=== PATIENT | female | born 1995 | race Caucasian/White ===

== ENCOUNTER 2016-12-20 19:30 | Emergency (ER) | payer OTHER, MEDICAID ==
[2016-12-20 19:45] VITALS: BP 136/78
[2016-12-20] MEDS ORDERED: Sodium Chloride 0.9% 10 ML Syringe FLUSH PRN (20:08)
[2016-12-20] MEDS ORDERED: Alum Hydrox/Mag Hydrox/Simeth 30 ML, Lidocaine 2% 15 ML PO ONE ×2 (20:09)
--- NOTE | 2016-12-20 20:17 | EDM.PDOC ---
ED HPI GI/ABDOMINAL - General Chief Complaint: Abdominal Pain Stated Complaint: ABDOMINAL PAIN Time Seen by Provider: 12/20/16 19:51 Source of Information: Reports: Patient History Limitations: Reports: No limitations - History of Present Illness INITIAL COMMENTS - FREE TEXT/NARRATIVE: Patient is a 21-year-old female who presents to the ED complaining of generalized stomach discomfort. States she's been experiencing intermittent abdominal cramping with varying degrees of severity. For the past few weeks patient states the symptoms have progressively gotten worse and more frequent. States symptoms have been going on since she was 17. Last year she had an appendectomy and cholycytectomy. This did not relieve any of the pain. States pain comes on at unpredictable times. Does not recall any known precipitating factors. Denies ever being diagnosed with irritable bowel syndrome. She's never had an EGD or colonoscopy. [facility] primary care provider is worried that she may have Crohn's. States last CT study of the abdomen was a approx. one year ago with appendectomy. States she has not eaten today. Has appointment with Dr. Gardner this coming Monday. Due to the pain patient stated she can not wait for this appointment. States she is utilizing TUMS intermittently with no improvement. She denies any fever, shortness breath, chest pain, acid reflux, dysuria, vaginal bleeding, or abnormal vaginal discharge. States she is breast-feeding her one half year-old. States last bowel movement was this morning described as hard and formed with no straining required. Denies any blood. States she does have intermittent diarrhea with hard stools. Past medical history positive for depression. Current medications include Zoloft, control, and Wellbutrin Surgical history: Cholecystectomy, appendectomy, Smokes few cigarettes daily, alcohol use once every month, no recreational drug use. Timing/Duration: Reports: Intermittent Location: generalized Quality: Reports: cramping Severity: moderate Improves with: Reports: other (Nothing) Worsens with: Reports: other (Nothing) Context: Reports: other (Unknown) Associated Symptoms (-Female): Reports: constipation, diarrhea, loss of appetite, nausea/vomiting (Intermittent nausea). Denies: chest pain, back pain , shoulder pain, bloody stools, fever/chills Treatments [employer]: Reports: Other (see below) (Tums) - Related Data Allergies/ADRs: Allergies Allergy/AdvReac Type Severity Reaction Status Date / Time amoxicillin Allergy Severe Anaphylactic Verified 12/20/16 19:45 Shock venom-honey bee Allergy Anaphylactic Verified 12/20/16 19:45 [bee venom (honey bee)] Shock Home Meds: Home Meds Control. 1 tab PO DAILY 10/30/15 [History] Sertraline [Zoloft] 100 mg PO DAILY 10/30/15 [History] Ondansetron [Zofran ODT] 4 mg PO Q6H PRN #10 tab.dis 12/20/16 [Rx] buPROPion [Wellbutrin XL] 150 mg PO ONCALL PRN 12/20/16 [History] Past Medical History - Past Health History Medical/Surgical History: Denies Medical/Surgical History Psychiatric History: Reports: Depression - Past Surgical History GI Surgical History: Reports: Appendectomy, Cholecystectomy Social & Family History - Tobacco Use Smoking Status *Q: Current Every Day Smoker Years of Tobacco use: 5 Packs/Tins Daily: 0.1 Used Tobacco, but Quit: No Second Hand Smoke Exposure: Yes - Caffeine Use Caffeine Use: Reports: Coffee - Alcohol Use Days Per Week of Alcohol Use: 0 - Recreational Drug Use Recreational Drug Use: No ED ROS GENERAL - Review of Systems Review Of Systems: See Below Constitutional: Reports: decreased appetite. Denies: fever, chills Respiratory: Reports: No Symptoms Cardiovascular: Reports: No symptoms GI/Abdominal: Reports: Abdominal pain, Constipation, Diarrhea, Decreased appetite, Nausea. Denies: Black stool, Bloody stool, Difficulty swallowing, Distension, Flatus, Hematemesis, Melena, Vomiting : Reports: no symptoms Musculoskeletal: Reports: no symptoms ED EXAM, GI/ABD - Physical Exam Exam: See Below Exam Limited By: No limitations General Appearance: alert, WD/WN, no apparent distress, other (Sitting upright in the hospital bed smiling while conversation) Eyes: bilateral: normal appearance Ears: hearing grossly normal Nose: normal inspection Throat/Mouth: Normal inspection, Normal oropharynx, Normal voice, No airway compromise Neck: normal inspection, supple Respiratory/Chest: no respiratory distress, lungs clear, normal breath sounds, no accessory muscle use Cardiovascular: normal peripheral pulses, regular rate, rhythm, no murmur GI/Abdominal: normal bowel sounds, soft, no organomegaly, no distention, tenderness (Along the epigastric region with palpation. This is very minimal. Patient did not grimace or guarding with palpation.). No: McBurney's sign, Mcneal's sign Back Exam: normal inspection. No: CVA tenderness (L), CVA tenderness (R) Neurological: alert, oriented, normal cognition, no motor/sensory deficits Psychiatric: normal affect, normal mood Skin Exam: Warm, Dry, Intact, Normal color Course - Vital Signs Last Recorded V/S: Last Vital Signs Temp 97.1 F 12/20/16 19:40 Pulse 83 12/20/16 19:40 Resp 18 12/20/16 19:40 BP 136/78 12/20/16 19:40 Pulse Ox 99 12/20/16 19:40 - Orders/Labs/Meds Orders: Active Orders 24 hr Category Date Time Status Peripheral IV Care [RC] . DIRECTED Care 12/20/16 20:08 Active Abdomen 1V Flat [CR] Stat Exams 12/20/16 20:08 Taken Peripheral IV Insertion Adult [OM.PC] Stat Oth 12/20/16 20:08 Ordered Labs: Laboratory Tests 12/20/16 12/20/16 12/20/16 Range/Units 19:45 19:45 19:45 WBC 14.13 H (3.98-10.04) K/mm3 RBC 5.03 (3.98-5.22) M/mm3 Hgb 14.7 (11.2-15.7) gm/L Hct 43.2 (34.1-44.9) % MCV 85.9 (79.4-94.8) fl MCH 29.2 (25.6-32.2) pg MCHC 34.0 (32.2-35.5) g/dl RDW Std Deviation 38.9 (36.4-46.3) fL Plt Count 246 (182-369) K/mm3 MPV 9.9 (9.4-12.3) fl Neut % (Auto) 74.7 H (34.0-71.1) % Lymph % (Auto) 17.8 L (19.3-51.7) % [place] % (Auto) 5.2 (4.7-12.5) % Eos % (Auto) 1.9 (0.7-5.8) Baso % (Auto) 0.3 (0.1-1.2) % Neut # (Auto) 10.55 H (1.56-6.13) K/mm3 Lymph # (Auto) 2.51 (1.18-3.74) K/mm3 [place] # (Auto) 0.74 H (0.24-0.36) K/mm3 Eos # (Auto) 0.27 (0.04-0.36) K/mm3 Baso # (Auto) 0.04 (0.01-0.08) K/mm3 Sodium 141 (136-145) mEq/L Potassium 3.7 (3.5-5.1) mEq/L Chloride 105 (98-107) mEq/L Carbon Dioxide 25 (21-32) mEq/L Anion Gap 14.7 (5-15) BUN 11 (7-18) mg/dL Creatinine 0.9 (0.55-1.02) mg/dL Est Cr Clr Drug Dosing 96.15 mL/min Estimated GFR (MDRD) > 60 (>60) mL/min BUN/Creatinine Ratio 12.2 L (14-18) Glucose 96 (74-106) mg/dL Calcium 9.2 (8.5-10.1) mg/dL Total Bilirubin 0.5 (0.2-1.0) mg/dL AST 20 (15-37) U/L ALT 22 (14-59) U/L Alkaline Phosphatase 138 H (46-116) U/L C-Reactive Protein 0.6 (<1.0) mg/dL Total Protein 8.1 (6.4-8.2) g/dl Albumin 4.3 (3.4-5.0) g/dl Globulin 3.8 gm/dL Albumin/Globulin Ratio 1.1 (1-2) Lipase 119 (73-393) U/L HCG, Qual Negative (NEGATIVE) Urine Color (Yellow) Urine Appearance (Clear) Urine pH (5.0-8.0) Ur Specific [place] (1.005-1.030) Urine Protein (Negative) Urine Glucose (UA) (Negative) Urine Ketones (Negative) Urine Occult Blood (Negative) Urine Nitrite (Negative) Urine Bilirubin (Negative) Urine Urobilinogen (0.2-1.0) Ur Leukocyte Esterase (Negative) Urine RBC (0-5) /hpf Urine WBC (0-5) /hpf Ur Epithelial Cells (0-5) /hpf Urine Bacteria (FEW) /hpf Urine Mucus (FEW) /hpf Urine Opiates Screen (NEGATIVE) Ur Buprenorphine Scrn (NEGATIVE) Ur Oxycodone Screen (NEGATIVE) Urine Methadone Screen (NEGATIVE) Ur Propoxyphene Screen (NEGATIVE) Ur Barbiturates Screen (NEGATIVE) Ur Tricyclics Screen (NEGATIVE) Ur Phencyclidine Scrn (NEGATIVE) Ur Amphetamine Screen (NEGATIVE) U Methamphetamines Scrn (NEGATIVE) U Benzodiazepines Scrn (NEGATIVE) U Cocaine Metab Screen (NEGATIVE) U Marijuana (THC) Screen (NEGATIVE) 12/20/16 12/20/16 Range/Units 20:47 20:47 WBC (3.98-10.04) K/mm3 RBC (3.98-5.22) M/mm3 Hgb (11.2-15.7) gm/L Hct (34.1-44.9) % MCV (79.4-94.8) fl MCH (25.6-32.2) pg MCHC (32.2-35.5) g/dl RDW Std Deviation (36.4-46.3) fL Plt Count (182-369) K/mm3 MPV (9.4-12.3) fl Neut % (Auto) (34.0-71.1) % Lymph % (Auto) (19.3-51.7) % [place] % (Auto) (4.7-12.5) % Eos % (Auto) (0.7-5.8) Baso % (Auto) (0.1-1.2) % Neut # (Auto) (1.56-6.13) K/mm3 Lymph # (Auto) (1.18-3.74) K/mm3 [place] # (Auto) (0.24-0.36) K/mm3 Eos # (Auto) (0.04-0.36) K/mm3 Baso # (Auto) (0.01-0.08) K/mm3 Sodium (136-145) mEq/L Potassium (3.5-5.1) mEq/L Chloride (98-107) mEq/L Carbon Dioxide (21-32) mEq/L Anion Gap (5-15) BUN (7-18) mg/dL Creatinine (0.55-1.02) mg/dL Est Cr Clr Drug Dosing mL/min Estimated GFR (MDRD) (>60) mL/min BUN/Creatinine Ratio (14-18) Glucose (74-106) mg/dL Calcium (8.5-10.1) mg/dL Total Bilirubin (0.2-1.0) mg/dL AST (15-37) U/L ALT (14-59) U/L Alkaline Phosphatase (46-116) U/L C-Reactive Protein (<1.0) mg/dL Total Protein (6.4-8.2) g/dl Albumin (3.4-5.0) g/dl Globulin gm/dL Albumin/Globulin Ratio (1-2) Lipase (73-393) U/L HCG, Qual (NEGATIVE) Urine Color Yellow (Yellow) Urine Appearance Slt cloudy H (Clear) Urine pH 5.5 (5.0-8.0) Ur Specific [place] 1.025 (1.005-1.030) Urine Protein Negative (Negative) Urine Glucose (UA) Negative (Negative) Urine Ketones Negative (Negative) Urine Occult Blood Negative (Negative) Urine Nitrite Negative (Negative) Urine Bilirubin Negative (Negative) Urine Urobilinogen 0.2 (0.2-1.0) Ur Leukocyte Esterase Negative (Negative) Urine RBC 0-5 (0-5) /hpf Urine WBC 0-5 (0-5) /hpf Ur Epithelial Cells 0-5 (0-5) /hpf Urine Bacteria Many H (FEW) /hpf Urine Mucus Not seen (FEW) /hpf Urine Opiates Screen Negative (NEGATIVE) Ur Buprenorphine Scrn Negative (NEGATIVE) Ur Oxycodone Screen Negative (NEGATIVE) Urine Methadone Screen Negative (NEGATIVE) Ur Propoxyphene Screen Negative (NEGATIVE) Ur Barbiturates Screen Negative (NEGATIVE) Ur Tricyclics Screen Negative (NEGATIVE) Ur Phencyclidine Scrn Negative (NEGATIVE) Ur Amphetamine Screen Negative (NEGATIVE) U Methamphetamines Scrn Negative (NEGATIVE) U Benzodiazepines Scrn Negative (NEGATIVE) U Cocaine Metab Screen Negative (NEGATIVE) U Marijuana (THC) Screen Negative (NEGATIVE) Meds: Medications Discontinued Medications Generic Name Dose Route Start Last Admin Trade Name Freq PRN Reason Stop Dose Admin Al Hydroxide/Mg Hydroxide 30 0 ml 12/20/16 20:09 12/20/16 20:18 ml/ Lidocaine HCl 15 ml PO 04/25/17 20:10 45 ml ONETIME ONE Administration Sodium Chloride 10 ml 12/20/16 20:08 12/20/16 20:19 Saline Flush FLUSH 10 ml ASDIRECTED PRN Administration Keep Vein Open - Re-Assessments/Exams Free Text/Narrative Re-Assessment/Exam: 12/20/16 20:12 Ordered peripheral IV. GI cocktail by mouth. Initial labs and studies include CBC, chem 14, CRP, UA, hCG, lipase, one view of the abdomen. 12/20/16 21:01 labs reviewed: White blood cell count 14.3, hemoglobin is 14.7, neutrophil percentage 74.7, neutrophil #10.55, sodium is 141, potassium 3.7, creatinine 0.9, CRP 0.6, lipase 119, hCG negative. Awaiting UA results. 12/20/16 21:36 Shared results of labs with patient. We have opted not to pursue CT of the abdomen and pelvis. This has been present for almost one year with unknown etiology. Patient does have a history depression and is on Zoloft and Wellbutrin. Both these medications adverse side effects list abdominal discomfort. I suspect she may have irritable bowel syndrome. She states she's been more stressed out lately. She has a 1-1/2-year-old child she's taken care of and they are financially strapped. She requires a EGD and colonoscopy to rule out any other potential etiologies. Patient agrees with this and will be discharged home with instructions. Departure - Departure Time of Disposition: 21:38 Disposition: Home, Self-Care 01 Condition: good Clinical Impression: Abdominal pain Qualifiers: Abdominal location: epigastric Qualified Code(s): R10.13 - Epigastric pain Prescriptions: Ondansetron [Zofran ODT] 4 mg PO Q6H PRN #10 tab.dis PRN Reason: Nausea Instructions: Abdominal Pain, Adult, [id number], Nausea and Vomiting, Adult, [id number] Referrals: Curly Aguirre MD [Primary Care Provider] - Forms: ED Department Discharge Additional Instructions: As discussed etiology of abdominal discomfort is unknown. Suggest on her PCP to arrange EGD and also colonoscopy. Take Tylenol as needed for discomfort. Will have these are taking Prilosec 20 mg every day. For nausea take 4 mg ODT every 6 hours as needed. Keep appointment with PCP this Monday. Return to the ED for any new or worsening symptoms as needed. - My Orders Last 24 Hours: My Active Orders 12/20/16 20:08 Peripheral IV Care [RC] . DIRECTED Abdomen 1V Flat [CR] Stat Peripheral IV Insertion Adult [OM.PC] Stat - Assessment/Plan Last 24 Hours: My Active Orders 12/20/16 20:08 Peripheral IV Care [RC] . DIRECTED Abdomen 1V Flat [CR] Stat Peripheral IV Insertion Adult [OM.PC] Stat
--- NOTE | 2016-12-21 06:45 | CR ---
Abdomen: Supine view of the abdomen was obtained. Comparison: Previous abdominal x-ray of 09/18/09. Bowel gas pattern appears normal. Surgical clips are seen from prior cholecystectomy. No abnormal calcifications or discrete soft tissue abnormality is seen. Bony structures are unremarkable. Impression: 1. No abnormality identified on supine abdominal x-ray. Diagnostic code #1
== END 2016-12-20 21:56 | disposition home or self-care (01) ==
LOC: JD.ED 19:30
DX: R10.13 Epigastric pain (principal); Z88.1 Allergy status to other antibiotic agents; Z91.030 Bee allergy status; F32.9 Major depressive disorder, single episode, unspecified; F17.210 Nicotine dependence, cigarettes, uncomplicated; Z90.49 Acquired absence of other specified parts of digestive tract; Z79.899 Other long term (current) drug therapy
CPT/HCPCS: 36415; 74000; 80053; 80306; 81001; 83690; 84703; 85025; 86140; 99284; A9270; J7050; 99282

== ENCOUNTER 2018-11-27 19:13 | Emergency (ER) | payer OTHER, MEDICAID ==
[2018-11-27 19:23] VITALS: BP 135/83
--- NOTE | 2018-11-27 20:12 | EDM.PDOC ---
<Caroline Casas - Last Filed: 11/27/18 20:51> ED HPI GENERAL MEDICAL PROBLEM - General Chief Complaint: General Stated Complaint: HIGH BLOOD PRESSURE Time Seen by Provider: 11/27/18 19:24 Source of Information: Reports: Patient History Limitations: Reports: No Limitations - History of Present Illness INITIAL COMMENTS - FREE TEXT/NARRATIVE: 23 y/o female presents to ER with cc feeling light headed, dizzy and difficulty concentrating for the past 3 days. She also states she is here because her B/P is to high. She was seen at clinic and was told to come to ER for further evaluation. Her B/P is 138/78. She states she was told " it is to high for someone her age." She denies fever, chills, headache, SOB or chest pain. Onset Date: 11/25/18 Onset Time: 12:00 Duration: Intermittent Location: Reports: Head Severity: Mild Improves with: Reports: None Worsens with: Reports: None Associated Symptoms: Reports: Other (feels light headed, dizzy and difficulty concentrating for the past 3 days. ). Denies: Chest Pain, Diaphoresis, Nausea/ Vomiting - Related Data Allergies Allergy/AdvReac Type Severity Reaction Status Date / Time amoxicillin Allergy Severe Anaphylactic Verified 11/27/18 19:25 Shock venom-honey bee Allergy Anaphylactic Verified 11/27/18 19:25 [bee venom (honey bee)] Shock Home Meds: Home Meds Control. 1 tab PO DAILY 10/30/15 [History] Sertraline [Zoloft] 100 mg PO DAILY 10/30/15 [History] Ondansetron [Zofran ODT] 4 mg PO Q6H PRN #10 tab.dis 12/20/16 [Rx] buPROPion [Wellbutrin XL] 150 mg PO ONCALL PRN 12/20/16 [History] Past Medical History - Past Health History Medical/Surgical History: Denies Medical/Surgical History Cardiovascular History: Reports: Heart Murmur, Other (See Below) 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 Psychiatric History: Reports: Depression - Past Surgical History GI Surgical History: Reports: Appendectomy, Cholecystectomy Social & Family History - Tobacco Use Smoking Status *Q: Current Every Day Smoker Years of Tobacco use: 7 Packs/Tins Daily: 0.5 - Caffeine Use Caffeine Use: Reports: Coffee, Soda - Recreational Drug Use Recreational Drug Use: No ED ROS GENERAL - Review of Systems Review Of Systems: See Below Constitutional: Denies: Fever, Chills HEENT: Reports: No Symptoms Respiratory: Denies: Shortness of Breath Cardiovascular: Denies: Chest Pain Endocrine: Reports: No Symptoms GI/Abdominal: Reports: No Symptoms Musculoskeletal: Reports: No Symptoms Skin: Reports: Dryness Neurological: Reports: Dizziness, Weakness. Denies: Change in Speech, Gait Disturbance Psychiatric: Reports: Anxiety Hematologic/Lymphatic: Reports: No Symptoms Immunologic: Reports: No Symptoms ED EXAM, GENERAL - Physical Exam Exam: See Below Exam Limited By: No Limitations General Appearance: Alert, WD/WN, No Apparent Distress Eye Exam: Bilateral Eye: EOMI, PERRL Ears: Normal External Exam, Normal Canal, Hearing Grossly Normal, Normal TMs Nose: Normal Inspection, Normal Mucosa, No Blood Throat/Mouth: Normal Inspection, Normal Lips, Normal Teeth, Normal Gums, Normal Oropharynx, Normal Voice, No Airway Compromise Head: Atraumatic, Normocephalic Neck: Normal Inspection, Supple, Non-Tender, Full Range of Motion Respiratory/Chest: No Respiratory Distress, Lungs Clear, Normal Breath Sounds, No Accessory Muscle Use, Chest Non-Tender Cardiovascular: Normal Peripheral Pulses, Regular Rate, Rhythm, No Edema, No Gallop, No JVD, No Murmur, No Rub Back Exam: Normal Inspection, Full Range of Motion Extremities: Normal Inspection, Normal Range of Motion, Non-Tender, No Pedal Edema, Normal Capillary Refill Neurological: Alert, Oriented, CN II-XII Intact, Normal Cognition, Normal Reflexes, No Motor/Sensory Deficits Psychiatric: Normal Affect, Normal Mood Skin Exam: Warm, Dry, Intact, Normal Color, No Rash Lymphatic: No Adenopathy EKG INTERPRETATION EKG Date: 11/27/18 Time: 19:36 Rhythm: NSR Rate (Beats/Min): 86 Course - Vital Signs Last Recorded V/S: Last Vital Signs Temp 97.8 F 11/27/18 19:20 Pulse 88 11/27/18 19:20 Resp 16 11/27/18 19:20 BP 135/83 11/27/18 19:20 Pulse Ox 99 11/27/18 19:20 Orthostatic Blood Pressure [ 113/76 Sitting] Orthostatic Blood Pressure [ 106/61 Supine] - Orders/Labs/Meds Orders: Active Orders 24 hr Category Date Time Status EKG Documentation Completion [RC] STAT Care 11/27/18 19:29 Active Orthostatic Vital Signs [RC] ASDIRECTED Care 11/27/18 19:30 Active Labs: Laboratory Tests 11/27/18 11/27/18 11/27/18 Range/Units 19:49 20:07 20:07 WBC 13.49 H (3.98-10.04) K/mm3 RBC 4.85 (3.98-5.22) M/mm3 Hgb 14.0 (11.2-15.7) gm/L Hct 41.7 (34.1-44.9) % MCV 86.0 (79.4-94.8) fl MCH 28.9 (25.6-32.2) pg MCHC 33.6 (32.2-35.5) g/dl RDW Std Deviation 39.4 (36.4-46.3) fL Plt Count 248 (182-369) K/mm3 MPV 9.5 (9.4-12.3) fl Neut % (Auto) 68.7 (34.0-71.1) % Lymph % (Auto) 22.7 (19.3-51.7) % [place] % (Auto) 5.4 (4.7-12.5) % Eos % (Auto) 2.9 (0.7-5.8) Baso % (Auto) 0.2 (0.1-1.2) % Neut # (Auto) 9.26 H (1.56-6.13) K/mm3 Lymph # (Auto) 3.06 (1.18-3.74) K/mm3 [place] # (Auto) 0.73 H (0.24-0.36) K/mm3 Eos # (Auto) 0.39 H (0.04-0.36) K/mm3 Baso # (Auto) 0.03 (0.01-0.08) K/mm3 Sodium 140 (136-145) mEq/L Potassium 3.6 (3.5-5.1) mEq/L Chloride 104 (98-107) mEq/L Carbon Dioxide 26 (21-32) mEq/L Anion Gap 13.6 (5-15) BUN 10 (7-18) mg/dL Creatinine 0.9 (0.55-1.02) mg/dL Est Cr Clr Drug Dosing 94.54 mL/min Estimated GFR (MDRD) > 60 (>60) mL/min BUN/Creatinine Ratio 11.1 L (14-18) Glucose 91 (74-106) mg/dL Calcium 9.5 (8.5-10.1) mg/dL Total Bilirubin 0.2 (0.2-1.0) mg/dL AST 17 (15-37) U/L ALT 14 (14-59) U/L Alkaline Phosphatase 106 (46-116) U/L Total Protein 7.6 (6.4-8.2) g/dl Albumin 3.9 (3.4-5.0) g/dl Globulin 3.7 gm/dL Albumin/Globulin Ratio 1.1 (1-2) Urine Color Yellow (Yellow) Urine Appearance Clear (Clear) Urine pH 6.0 (5.0-8.0) Ur Specific [place] 1.025 (1.005-1.030) Urine Protein Negative (Negative) Urine Glucose (UA) Negative (Negative) Urine Ketones Negative (Negative) Urine Occult Blood Negative (Negative) Urine Nitrite Negative (Negative) Urine Bilirubin Negative (Negative) Urine Urobilinogen 0.2 (0.2-1.0) Ur Leukocyte Esterase Negative (Negative) - Re-Assessments/Exams Free Text/Narrative Re-Assessment/Exam: 11/27/18 20:46 23 y/o female presented to ER with cc dizziness, unable to concentrate and light headed. Her WBC 13.49 I think this is stress induced. Her H & H 14.0 41.7 Na+ 140 K= 3.6 Bun 10 creatine 0.9 Urinalysis was unremarkable. Her EKG revealed NSR. There was no change in her orthostatic B/P. I think her symptoms are due to anxiety and stress. I will discharge home with instructions to follow up with Dr. Gardner. I instructed her to return to the ER for any new or acute worsening symptoms. Patient verbalized understanding and is comfortable with plan for discharge. She is stable at time of discharge. Departure - Departure Time of Disposition: 20:49 Disposition: Home, Self-Care 01 Condition: Good Clinical Impression: Dizziness - Discharge Information *PRESCRIPTION DRUG MONITORING PROGRAM REVIEWED*: Not Applicable *COPY OF PRESCRIPTION DRUG MONITORING REPORT IN PATIENT GEMINI: Not Applicable Instructions: Dizziness, [id number], Dizziness Referrals: Curly Aguirre MD [Primary Care Provider] - Forms: ED Department Discharge Additional Instructions: You have been diagnosis with dizziness. I recommend you go from sitting to standing very slowly. Your labs studies were unremarkable. Follow up with Dr. Gardner. Return to the ER for any new or acute worsening symptoms. <Charly Marvin - Last Filed: 11/27/18 21:57> Course - Re-Assessments/Exams Free Text/Narrative Re-Assessment/Exam: 11/27/18 21:57 I examined the patient myself and I agree with Caroline's assessment and plan.
== END 2018-11-27 21:03 | disposition home or self-care (01) ==
LOC: JD.ED 19:13
DX: R42 Dizziness and giddiness (principal); F17.210 Nicotine dependence, cigarettes, uncomplicated; Z88.8 Allergy status to other drugs, medicaments and biological substances; Z88.1 Allergy status to other antibiotic agents; Z91.030 Bee allergy status; Z79.3 Long term (current) use of hormonal contraceptives; Z79.899 Other long term (current) drug therapy
CPT/HCPCS: 36415; 80053; 81003; 85025; 93005; 93010; 99284; 99284-25

== ENCOUNTER 2019-09-15 16:13 | Emergency (ER) | payer OTHER, MEDICAID ==
[2019-09-15] MEDS ORDERED: Alum Hydrox/Mag Hydrox/Simeth 30 ML, Lidocaine 2% 15 ML PO ONE ×2 (16:26)
--- NOTE | 2019-09-15 16:29 | EDM.PDOC ---
ED HPI GENERAL MEDICAL PROBLEM - General Chief Complaint: Chest Pain Stated Complaint: CRAMPING/BURNING IN CHEST/BACK Time Seen by Provider: 09/15/19 16:22 Source of Information: Reports: Patient History Limitations: Reports: No Limitations - History of Present Illness INITIAL COMMENTS - FREE TEXT/NARRATIVE: Patient's unfortunate obese 23-year-old female who presents emergency Department today with complaint of epigastric abdominal pain. Patient reports she was in her normal state of health prior to arrival when she had a sharp stabbing burning type pain started in her epigastrium radiating to her left chest and left arm. Patient reports pain also radiates to her back. Patient reports she has had pain similar to this in the past was diagnosed with a "ulcer ". Patient was scheduled follow up outpatient in September of this year. No nausea, no vomiting, no hematemesis, no hematochezia, no melena, no vaginal discharge, no dysuria, no frequency, no urgency, patient does report she had shortness of breath when the pain came on however that is since resolved Chest Pain Score (Numeric/FACES): 5 Upper Back Pain Score (Numeric/FACES): 4 - Related Data Allergies Allergy/AdvReac Type Severity Reaction Status Date / Time amoxicillin Allergy Severe Anaphylactic Verified 11/27/18 19:25 Shock venom-honey bee Allergy Anaphylactic Verified 11/27/18 19:25 [bee venom (honey bee)] Shock Home Meds: Home Meds Control. 1 tab PO DAILY 10/30/15 [History] Sertraline [Zoloft] 100 mg PO DAILY 10/30/15 [History] Amitriptyline [Elavil] 5 mg PO BEDTIME 09/15/19 [History] Past Medical History - Past Health History Medical/Surgical History: Denies Medical/Surgical History Cardiovascular History: Reports: Heart Murmur, Other (See Below) 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 Psychiatric History: Reports: Depression - Past Surgical History GI Surgical History: Reports: Appendectomy, Cholecystectomy Social & Family History - Caffeine Use Caffeine Use: Reports: Coffee, Soda ED ROS GENERAL - Review of Systems Review Of Systems: See Below Constitutional: Denies: Fever, Chills Respiratory: Reports: Shortness of Breath Cardiovascular: Reports: Chest Pain GI/Abdominal: Reports: Abdominal Pain. Denies: Nausea, Vomiting ED EXAM, GI/ABD - Physical Exam Exam: See Below Exam Limited By: No Limitations General Appearance: Alert, WD/WN, Mild Distress, Obese Throat/Mouth: Normal Inspection, Normal Lips, Normal Teeth, Normal Gums, Normal Oropharynx, Normal Voice, No Airway Compromise Head: Atraumatic, Normocephalic Neck: Normal Inspection, Supple, Non-Tender, Full Range of Motion Respiratory/Chest: No Respiratory Distress, Lungs Clear, Normal Breath Sounds, No Accessory Muscle Use, Chest Non-Tender Cardiovascular: Normal Peripheral Pulses, Regular Rate, Rhythm, No Edema, No Gallop, No JVD, No Murmur, No Rub GI/Abdominal Exam: Normal Bowel Sounds, Soft, Tender (Epigastric) Back Exam: Normal Inspection, Full Range of Motion, NT Extremities: Normal Inspection, Normal Range of Motion, Non-Tender, Normal Capillary Refill, No Pedal Edema Neurological: Alert Skin Exam: Warm, Dry Course - Vital Signs Last Recorded V/S: Last Vital Signs Temp 97.6 F 09/15/19 16:30 Pulse 86 09/15/19 16:30 Resp 20 09/15/19 16:30 BP 132/79 09/15/19 16:30 Pulse Ox 100 09/15/19 16:30 - Orders/Labs/Meds Meds: Medications Discontinued Medications Generic Name Dose Route Start Last Admin Trade Name Latosha PRN Reason Stop Dose Admin Al Hydroxide/Mg Hydroxide 30 0 ml 09/15/19 16:26 09/15/19 16:32 ml/ Lidocaine HCl 15 ml PO 09/15/19 16:27 45 ml ONETIME ONE Administration - Re-Assessments/Exams Free Text/Narrative Re-Assessment/Exam: 09/15/19 17:11 Please resolution of pain with GI cocktail will discharge to home for outpatient follow up outpatient with PCP Departure - Departure Time of Disposition: 17:12 Disposition: Home, Self-Care 01 Condition: Good Clinical Impression: GERD (gastroesophageal reflux disease) Qualifiers: Esophagitis presence: with esophagitis Qualified Code(s): K21.0 - Gastro- esophageal reflux disease with esophagitis - Discharge Information Instructions: Gastroesophageal Reflux Disease, Adult Referrals: Curly Aguirre MD [Primary Care Provider] - Forms: ED Department Discharge Additional Instructions: Home, rest, Prilosec OTC daily for one month, Tums as needed for pain, return as needed for worsening condition Sepsis Event Note - Focused Exam Vital Signs: Vital Signs Temp Pulse Resp BP Pulse Ox 09/15/19 16:30 97.6 F 86 20 132/79 100 Date Exam was Performed: 09/15/19 Time Exam was Performed: 17:11
[2019-09-15 16:31] VITALS: BP 132/79; PULSE 86
== END 2019-09-15 17:20 | disposition home or self-care (01) ==
LOC: JD.ED 16:13
DX: K21.0 Gastro-esophageal reflux disease with esophagitis (principal); F32.9 Major depressive disorder, single episode, unspecified; Z90.49 Acquired absence of other specified parts of digestive tract; Z88.1 Allergy status to other antibiotic agents; Z91.030 Bee allergy status; Z79.899 Other long term (current) drug therapy
CPT/HCPCS: 99283; A9270; 99282

== ENCOUNTER 2019-11-15 12:22 | Emergency (ER) | payer OTHER, MEDICAID ==
[2019-11-15] MEDS ORDERED: Sodium Chloride 0.9% 10 ML Syringe FLUSH PRN (12:45)
--- NOTE | 2019-11-15 12:50 | EDM.PDOC ---
ED HPI GENERAL MEDICAL PROBLEM - General Chief Complaint: [facility] Problem Stated Complaint: PELVIC PAIN Time Seen by Provider: 11/15/19 12:34 Source of Information: Reports: Patient, RN Notes Reviewed History Limitations: Reports: No Limitations - History of Present Illness INITIAL COMMENTS - FREE TEXT/NARRATIVE: Patient is a 24-year-old female who presents to the ED for the evaluation of some lower abdominal/pelvic pain. Patient states that she is been having this on and off pain for the last few weeks. She states that the pain did worsen today however this is what brought her to seek medical care. She did try to take some Tylenol and this provided little relief but not a lot. She notes that the pain is sharp and stabbing in nature, and does radiate down into her pelvis or vagina area, and into her low back. She is not complaining of any dysuria, frequency or urgency, and she states she has been having normal vaginal discharge, with some mild vaginal spotting but not foul-smelling or out of the normal. Patient states that her last menstrual period was around 1 month ago, and was supposed to start yesterday. She notes that she is having unprotected sex with one partner, but has been with this partner for around 6 years, she states she is not worried about STDs at today's visit. Patient denies any fever/chills, chest pain, shortness of breath, nausea/vomiting/ diarrhea. Patient states that she did have a normal bowel movement this morning , denies any trauma to the area. Patient states that she has had normal Pap smears in the past as well, and states that she is supposed to have her physical exam next week Monday. Treatments SPEECH AND LANGUAGE SPECIALIST: Reports: Other (see below) Other Treatments SPEECH AND LANGUAGE SPECIALIST: tylenol Pelvic Pain Score (Numeric/FACES): 8 - Related Data Allergies Allergy/AdvReac Type Severity Reaction Status Date / Time amoxicillin Allergy Severe Anaphylactic Verified 11/27/18 19:25 Shock venom-honey bee Allergy Anaphylactic Verified 11/27/18 19:25 [bee venom (honey bee)] Shock Home Meds: Home Meds Sertraline [Zoloft] 100 mg PO DAILY 10/30/15 [History] Amitriptyline [Elavil] 5 mg PO BEDTIME 09/15/19 [History] Past Medical History Cardiovascular History: Reports: Heart Murmur, Other (See Below) 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 [facility] History: Reports: PID Psychiatric History: Reports: Anxiety, Depression - Past Surgical History GI Surgical History: Reports: Appendectomy, Cholecystectomy Social & Family History - Tobacco Use Smoking Status *Q: Current Every Day Smoker Years of Tobacco use: 8 Packs/Tins Daily: 1 - Caffeine Use Caffeine Use: Reports: Coffee - Recreational Drug Use Recreational Drug Use: No ED ROS GENERAL - Review of Systems Review Of Systems: See Below Constitutional: Denies: Fever, Chills Respiratory: Denies: Shortness of Breath, Cough Cardiovascular: Denies: Chest Pain GI/Abdominal: Reports: Abdominal Pain (low pelvis pain). Denies: Constipation, Diarrhea, Nausea, Vomiting : Reports: Discharge (states that discharge looks normal to her, and not malodorous), Pain (Pelvic w low back pain). Denies: Dysuria, Frequency, Urgency Musculoskeletal: Reports: Back Pain ED EXAM, RENAL/ - Physical Exam Exam: See Below Exam Limited By: No Limitations General Appearance: Alert, WD/WN, No Apparent Distress Eye Exam: Bilateral Eye: Normal Inspection Ears: Normal External Exam Nose: Normal Inspection Throat/Mouth: Normal Inspection, Normal Lips, Normal Teeth, Normal Gums, Normal Oropharynx, Normal Voice, No Airway Compromise Head: Atraumatic, Normocephalic Neck: Normal Inspection Respiratory/Chest: No Respiratory Distress, Lungs Clear, Normal Breath Sounds, No Accessory Muscle Use, Chest Non-Tender Cardiovascular: Normal Peripheral Pulses, Regular Rate, Rhythm, No Murmur GI/Abdominal: Normal Bowel Sounds, Soft, No Distention, No Mass, Tender (low pelvic/suprapubic) (Female) Exam: Normal External Exam, Normal Speculum Exam, Normal Bimanual Exam, Adnexal Tenderness (mild tenderness midline/ left adnexa on bimanual). No : Cervix Motion Tenderness, Vaginal Bleeding, Vaginal Discharge Back Exam: Normal Inspection, Full Range of Motion Extremities: Normal Inspection, Normal Capillary Refill Neurological: Alert, Oriented, Normal Cognition, No Motor/Sensory Deficits Psychiatric: Normal Affect, Normal Mood Skin Exam: Warm, Dry, Intact, Normal Color, No Rash Course - Vital Signs Last Recorded V/S: Last Vital Signs Temp 98.0 F 11/15/19 15:50 Pulse 72 11/15/19 15:50 Resp 16 11/15/19 15:50 BP 121/61 11/15/19 15:50 Pulse Ox 99 11/15/19 15:50 - Orders/Labs/Meds Orders: Active Orders 24 hr Category Date Time Status Peripheral IV Care [RC] . DIRECTED Care 11/15/19 12:45 Active Peripheral IV Insertion Adult [OM.PC] Routine Oth 11/15/19 12:45 Ordered Labs: Laboratory Tests 11/15/19 11/15/19 11/15/19 Range/Units 12:50 12:50 12:50 WBC 10.91 H (3.98-10.04) K/mm3 RBC 4.85 (3.98-5.22) M/mm3 Hgb 14.1 (11.2-15.7) gm/dl Hct 41.8 (34.1-44.9) % MCV 86.2 (79.4-94.8) fl MCH 29.1 (25.6-32.2) pg MCHC 33.7 (32.2-35.5) g/dl RDW Std Deviation 39.7 (36.4-46.3) fL Plt Count 268 (182-369) K/mm3 MPV 9.7 (9.4-12.3) fl Neut % (Auto) 70.9 (34.0-71.1) % Lymph % (Auto) 20.8 (19.3-51.7) % [place] % (Auto) 6.4 (4.7-12.5) % Eos % (Auto) 1.4 (0.7-5.8) Baso % (Auto) 0.3 (0.1-1.2) % Neut # (Auto) 7.74 H (1.56-6.13) K/mm3 Lymph # (Auto) 2.27 (1.18-3.74) K/mm3 [place] # (Auto) 0.70 H (0.24-0.36) K/mm3 Eos # (Auto) 0.15 (0.04-0.36) K/mm3 Baso # (Auto) 0.03 (0.01-0.08) K/mm3 Sodium (136-145) mEq/L Potassium (3.5-5.1) mEq/L Chloride (98-107) mEq/L Carbon Dioxide (21-32) mEq/L Anion Gap (5-15) BUN (7-18) mg/dL Creatinine (0.55-1.02) mg/dL Est Cr Clr Drug Dosing mL/min Estimated GFR (MDRD) (>60) mL/min BUN/Creatinine Ratio (14-18) Glucose (74-106) mg/dL Calcium (8.5-10.1) mg/dL Total Bilirubin (0.2-1.0) mg/dL AST (15-37) U/L ALT (14-59) U/L Alkaline Phosphatase (46-116) U/L Total Protein (6.4-8.2) g/dl Albumin (3.4-5.0) g/dl Globulin gm/dL Albumin/Globulin Ratio (1-2) Urine Color Yellow (Yellow) Urine Appearance Clear (Clear) Urine pH 6.0 (5.0-8.0) Ur Specific [place] > or = 1.030 (1.005-1.030) Urine Protein Negative (Negative) Urine Glucose (UA) Negative (Negative) Urine Ketones Trace H (Negative) Urine Occult Blood Negative (Negative) Urine Nitrite Negative (Negative) Urine Bilirubin Negative (Negative) Urine Urobilinogen 0.2 (0.2-1.0) Ur Leukocyte Esterase Negative (Negative) Urine RBC 0-5 (0-5) /hpf Urine WBC 0-5 (0-5) /hpf Ur Squamous Epith Cells 0-5 (0-5) /hpf Urine Bacteria Few (FEW) /hpf Urine Mucus Few (FEW) /hpf Urine HCG, Qual Negative (NEGATIVE) 11/15/19 Range/Units 12:50 WBC (3.98-10.04) K/mm3 RBC (3.98-5.22) M/mm3 Hgb (11.2-15.7) gm/dl Hct (34.1-44.9) % MCV (79.4-94.8) fl MCH (25.6-32.2) pg MCHC (32.2-35.5) g/dl RDW Std Deviation (36.4-46.3) fL Plt Count (182-369) K/mm3 MPV (9.4-12.3) fl Neut % (Auto) (34.0-71.1) % Lymph % (Auto) (19.3-51.7) % [place] % (Auto) (4.7-12.5) % Eos % (Auto) (0.7-5.8) Baso % (Auto) (0.1-1.2) % Neut # (Auto) (1.56-6.13) K/mm3 Lymph # (Auto) (1.18-3.74) K/mm3 [place] # (Auto) (0.24-0.36) K/mm3 Eos # (Auto) (0.04-0.36) K/mm3 Baso # (Auto) (0.01-0.08) K/mm3 Sodium 142 (136-145) mEq/L Potassium 4.7 (3.5-5.1) mEq/L Chloride 105 (98-107) mEq/L Carbon Dioxide 25 (21-32) mEq/L Anion Gap 16.7 H (5-15) BUN 11 (7-18) mg/dL Creatinine 0.8 (0.55-1.02) mg/dL Est Cr Clr Drug Dosing 105.45 mL/min Estimated GFR (MDRD) > 60 (>60) mL/min BUN/Creatinine Ratio 13.8 L (14-18) Glucose 90 (74-106) mg/dL Calcium 9.2 (8.5-10.1) mg/dL Total Bilirubin 0.5 (0.2-1.0) mg/dL AST 30 (15-37) U/L ALT 36 (14-59) U/L Alkaline Phosphatase 112 (46-116) U/L Total Protein 7.7 (6.4-8.2) g/dl Albumin 3.7 (3.4-5.0) g/dl Globulin 4.0 gm/dL Albumin/Globulin Ratio 0.9 L (1-2) Urine Color (Yellow) Urine Appearance (Clear) Urine pH (5.0-8.0) Ur Specific [place] (1.005-1.030) Urine Protein (Negative) Urine Glucose (UA) (Negative) Urine Ketones (Negative) Urine Occult Blood (Negative) Urine Nitrite (Negative) Urine Bilirubin (Negative) Urine Urobilinogen (0.2-1.0) Ur Leukocyte Esterase (Negative) Urine RBC (0-5) /hpf Urine WBC (0-5) /hpf Ur Squamous Epith Cells (0-5) /hpf Urine Bacteria (FEW) /hpf Urine Mucus (FEW) /hpf Urine HCG, Qual (NEGATIVE) Meds: Medications Discontinued Medications Generic Name Dose Route Start Last Admin Trade Name Latosha PRN Reason Stop Dose Admin Magnesium Citrate 296 ml 11/15/19 15:37 11/15/19 15:46 Citrate Of Magnesia PO 11/15/19 15:38 296 ml ONETIME ONE Administration Sodium Chloride 10 ml 11/15/19 12:45 11/15/19 12:55 Saline Flush FLUSH 10 ml ASDIRECTED PRN Administration Keep Vein Open - Re-Assessments/Exams Free Text/Narrative Re-Assessment/Exam: 11/15/19 12:52 Patient presents to the ED for pelvic pain. I will have an IV be placed, obtain a CBC, CMP, urinalysis and hCG for initial evaluation. Will wait for hCG to come back to determine radiological needs. 11/15/19 15:09 Patient's laboratory evaluation does come back and demonstrates fairly unremarkable. Patient's vaginal exam was done, and a wet prep was taken, she does have a few clue cells present, but everything else was essentially within normal limits. I do believe the patient has a yearly physical on Monday, I will have her discussed the need to start Flagyl versus not with them, as the discharge is not malodorous. Patient is not . A abdomen x-ray was taken, and does show moderate amount of stool throughout the colon. It also order an ultrasound to evaluate for the possibility of ovarian cyst. Radiology read is pending on the ultrasound. It is likely that the patient is having some of her symptoms due to constipation however. 11/15/19 15:36 Patient's transvaginal ultrasound demonstrates no sign of ovarian cyst. Will treat for constipation and have her follow-up with [facility] on Monday. Departure - Departure Time of Disposition: 15:37 Disposition: Home, Self-Care 01 Condition: Fair Clinical Impression: Constipation Qualifiers: Constipation type: other constipation type Qualified Code(s): K59.09 - Other constipation - Discharge Information *PRESCRIPTION DRUG MONITORING PROGRAM REVIEWED*: No *COPY OF PRESCRIPTION DRUG MONITORING REPORT IN PATIENT GEMINI: No Instructions: Constipation, Adult, [id number], Probiotics Referrals: Curly Aguirre MD [Primary Care Provider] - Forms: ED Department Discharge Additional Instructions: You were evaluated in the ER today regarding your lower abdominal pain. Your laboratory evaluation was within normal limits, you are not . You did have an abdomen x-ray done that did demonstrate quite a bit of stool throughout your colon which would be consistent with constipation. You were given a bottle of magnesium citrate, please drink one half bottle, if you do not have a rather large bowel movement in 3 to 4 hours, repeat with the other half bottle. Your ultrasound demonstrates no sign of ovarian cyst at this time. You may take some Tylenol/ibuprofen, for the abdomen pain/cramping. Recommend you keep your appointment with [facility] on Monday for your yearly physical exam. Please return to the ER at any time if symptoms change or worsen. Sepsis Event Note - Evaluation Sepsis Screening Result: No Definite Risk - Focused Exam Vital Signs: Vital Signs Temp Pulse Resp BP Pulse Ox 11/15/19 15:50 98.0 F 72 16 121/61 99 11/15/19 12:34 97.5 F 83 20 118/60 100 Date Exam was Performed: 11/15/19 Time Exam was Performed: 21:26 - My Orders Last 24 Hours: My Active Orders 11/15/19 12:45 Peripheral IV Care [RC] . DIRECTED Peripheral IV Insertion Adult [OM.PC] Routine - Assessment/Plan Last 24 Hours: My Active Orders 11/15/19 12:45 Peripheral IV Care [RC] . DIRECTED Peripheral IV Insertion Adult [OM.PC] Routine
--- NOTE | 2019-11-15 14:34 | CR ---
Abdomen: Supine view of the abdomen was obtained. Comparison: Prior abdominal x-ray of 09/18/09. Mild stool is seen throughout the colon. Surgical clips noted from prior cholecystectomy. No abnormal calcifications or soft tissue abnormality is seen. Impression: 1. Slight increased stool within the colon. 2. Supine abdominal x-ray is otherwise unremarkable. Diagnostic code #2 Study was dictated in MDT
--- NOTE | 2019-11-15 15:17 | US ---
Pelvic ultrasound: Multiple real-time images were obtained transvaginally. Comparison: Prior pelvic ultrasound study of 09/25/17. Uterus is anteverted. Endometrial thickness is 1.5 cm. Small amount of free fluid is seen within the cul-de-sac which is believed to be physiologic. Ovaries appear within normal limits. Measurements: Uterus: Length 8.0 cm, AP height 3.9 cm, transverse width 5.3 cm Right ovary: 2.8 x 1.6 x 1.5 cm Left ovary: 3.2 x 1.4 x 2.1 cm Impression: 1. Nothing acute is seen on pelvic ultrasound study. Diagnostic code #1 Study was dictated in MDT
[2019-11-15] MEDS ORDERED: Magnesium Citrate Solution 296 ML Bottle PO ONE (15:37)
[2019-11-15 15:56] VITALS: BP 121/61; PULSE 72
== END 2019-11-15 15:53 | disposition home or self-care (01) ==
LOC: JD.ED 12:22
DX: K59.09 Other constipation (principal); F41.9 Anxiety disorder, unspecified; F32.9 Major depressive disorder, single episode, unspecified; Z88.0 Allergy status to penicillin; Z91.030 Bee allergy status
CPT/HCPCS: 36415; 74018; 76830; 80053; 81001; 81025; 85025; 87210; 87808; 99284; A9270; 99283

== ENCOUNTER 2020-10-29 07:34 | Inpatient (IN) | payer OTHER, MEDICAID ==
[~2020-10-29 07:34] MED LIST: Bupivacaine 0.25% 10 ML SDV ONE
[2020-10-29] MEDS ORDERED: Sodium Chloride 0.9% 10 ML Syringe FLUSH PRN (08:06)
[2020-10-29] MEDS ORDERED: Calcium Carbonate 500 MG Tab.Chew PO PRN (08:06)
[2020-10-29] MEDS ORDERED: Acetaminophen 325 MG Tab PO PRN (08:06)
[2020-10-29] MEDS ORDERED: Nalbuphine 10 MG/1 ML Vial IVPUSH PRN (08:06)
[2020-10-29] MEDS ORDERED: Ondansetron 4 MG/2 ML SDV IVPUSH PRN (08:06)
[2020-10-29] MEDS ORDERED: Bupivacaine/fentaNYL/NS 100 ML Bag EPIDUR PRN (08:15)
[2020-10-29] MEDS ORDERED: Lactated Ringers 1,000 ML IV SCH (08:15)
[2020-10-29] MEDS ORDERED: fentaNYL 100 MCG/2 ML SDV EPIDUR PRN (08:15)
[2020-10-29] MEDS ORDERED: ePHEDrine 50 MG/ML SDV IVPUSH PRN (08:15)
[2020-10-29] MEDS ORDERED: diphenhydrAMINE 50 MG/ML SDV IVPUSH PRN (08:15)
[2020-10-29] MEDS ORDERED: Oxytocin/Lactated Ringers 10 UNIT/1,000 ML BAG IV SCH (08:15)
--- NOTE | 2020-10-29 09:10 | PCM.PREANE ---
Preanesthetic Assessment - Procedure Proposed Procedure: EPIDURAL - Anesthesia/Transfusion/Family Hx Anesthesia History: Prior Anesthesia Without Reaction Family History of Anesthesia Reaction: No Transfusion History: No Prior Transfusion(s) - Review of Systems General: Fatigue Pulmonary: No Symptoms Cardiovascular: No Symptoms Gastrointestinal: Abdominal Pain (LABOR) Neurological: No Symptoms Other: Reports: None - Physical Assessment Vital Signs: Last Vital Signs Temp 36.1 C 10/29/20 07:49 Pulse 88 10/29/20 07:49 Resp 16 10/29/20 07:49 BP 122/77 10/29/20 07:49 Pulse Ox 97 10/29/20 07:49 Height: 1.7 m Weight: 125.69 kg ASA Class: 2 Mental Status: Alert & Oriented x3 Airway Class: Mallampati = 1 Dentition: Reports: Normal Dentition Thyro-Mental Finger Breadths: 3 Mouth Opening Finger Breadths: 3 ROM/Head Extension: Full Lungs: Clear to Auscultation, Normal Respiratory Effort Cardiovascular: Regular Rate, Regular Rhythm - Lab Values: Laboratory Last Values WBC 10.79 K/mm3 (3.98-10.04) H 10/29/20 08:20 RBC 4.35 M/mm3 (3.98-5.22) 10/29/20 08:20 Hgb 12.7 gm/dl (11.2-15.7) 10/29/20 08:20 Hct 38.5 % (34.1-44.9) 10/29/20 08:20 MCV 88.5 fl (79.4-94.8) 10/29/20 08:20 MCH 29.2 pg (25.6-32.2) 10/29/20 08:20 MCHC 33.0 g/dl (32.2-35.5) 10/29/20 08:20 RDW Std Deviation 42.4 fL (36.4-46.3) 10/29/20 08:20 Plt Count 270 K/mm3 (182-369) D 10/29/20 08:20 MPV 10.6 fl (9.4-12.3) 10/29/20 08:20 Neut % (Auto) 78.4 % (34.0-71.1) H 10/29/20 08:20 Lymph % (Auto) 14.4 % (19.3-51.7) L 10/29/20 08:20 [place] % (Auto) 6.3 % (4.7-12.5) 10/29/20 08:20 Eos % (Auto) 0.5 (0.7-5.8) L 10/29/20 08:20 Baso % (Auto) 0.1 % (0.1-1.2) 10/29/20 08:20 Neut # (Auto) 8.47 K/mm3 (1.56-6.13) H 10/29/20 08:20 Lymph # (Auto) 1.55 K/mm3 (1.18-3.74) 10/29/20 08:20 [place] # (Auto) 0.68 K/mm3 (0.24-0.36) H 10/29/20 08:20 Eos # (Auto) 0.05 K/mm3 (0.04-0.36) 10/29/20 08:20 Baso # (Auto) 0.01 K/mm3 (0.01-0.08) 10/29/20 08:20 - Allergies Allergies/Adverse Reactions: Allergies Allergy/AdvReac Type Severity Reaction Status Date / Time amoxicillin Allergy Severe Anaphylactic Verified 10/29/20 08:30 Shock venom-honey bee Allergy Anaphylactic Verified 10/29/20 08:30 [bee venom (honey bee)] Shock - Anesthesia Plan Pre-Op Medication Ordered: None - Acknowledgements Anesthesia Type Planned: Epidural Pt an Appropriate Candidate for the Planned Anesthesia: Yes Alternatives and Risks of Anesthesia Discussed w Pt/Guardian: Yes Pt/Guardian Understands and Agrees with Anesthesia Plan: Yes PreAnesthesia Questionnaire - Past Health History Medical/Surgical History: Denies Medical/Surgical History Cardiovascular History: Reports: Heart Murmur, Other (See Below) 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 Gastrointestinal History: Reports: GERD PARASITOLOGIST History: Reports: PID Psychiatric History: Reports: Anxiety, Depression - Past Surgical History GI Surgical History: Reports: Appendectomy, Cholecystectomy - HOME MEDS Home Medications: Home Meds Sertraline [Zoloft] 50 mg PO DAILY 10/30/15 [History] Pnv No.95/Ferrous Fum/Folic AC [ Tablet] 1 tab PO DAILY 10/07/20 [History] Esomeprazole Magnesium [Nexium] 40 mg PO DAILY 10/15/20 [History] diphenhydrAMINE HCL [Allergy Medicine] 1 tab PO DAILY 10/29/20 [History] - CURRENT (IN HOUSE) MEDS Current Meds: Current Medications Acetaminophen (Tylenol) 650 mg PO Q4H PRN PRN Reason: Pain (Mild 1-3) and fever Calcium Carbonate/Glycine (Tums) 1,000 mg PO Q2H PRN PRN Reason: Indigestion Diphenhydramine HCl (Benadryl) 25 mg IVPUSH Q6H PRN PRN Reason: pruritis Ephedrine Sulfate (Ephedrine Sulfate) 5 mg IVPUSH ASDIRECTED PRN PRN Reason: Hypotension Fentanyl (Sublimaze) 100 mcg EPIDUR Q3H PRN PRN Reason: Pain Last Admin: 10/29/20 08:51 Dose: 100 mcg Documented by: Fentanyl/Bupivacaine HCl (Fentanyl/Bupivacaine/Ns 2 Mcg-0.125% 100 Ml) 100 ml EPIDUR ASDIRECTED PRN PRN Reason: Pain Last Admin: 10/29/20 08:52 Dose: 100 ml Documented by: Lactated Ringer's (Ringers, Lactated) 1,000 mls @ 100 mls/hr IV ASDIRECTED HAYDEN Last Admin: 10/29/20 08:38 Dose: 100 mls/hr Documented by: Oxytocin/Lactated Ringer's (Pitocin In Lr 10 Units/1,000 Ml) 10 unit in 1,000 mls @ 500 mls/hr IV .CONTINUOUS HAYDEN Nalbuphine HCl (Nubain) 10 mg IVPUSH Q2H PRN PRN Reason: Pain Ondansetron HCl (Zofran) 4 mg IVPUSH Q4H PRN PRN Reason: Nausea/Vomiting Sodium Chloride (Saline Flush) 10 ml FLUSH ASDIRECTED PRN PRN Reason: Keep Vein Open
--- NOTE | 2020-10-29 13:53 | PCM.LDHP ---
L&D History of Present Illness - General Date of Service: 10/29/20 Admit Problem/Dx: Patient Status Order with Admit Dx/Problem 10/29/20 07:45 Patient Status [ADT] Routine 10/29/20 08:06 Patient Status [ADT] Routine Admission Diagnosis/Problem Admission Diagnosis/Problem - History of Present Illness Introduction:: 24 year old at 38w4 here in labor. Painful contractions. Doing well. No loss of fluid. Desires epidural. 4.5 cm on arrival. Regular care with Dr. Albarran comlicated by GBS neg, Covid in sep 2020. Rubeel equivocal, anxiety/depression. Pain Score: 8 - Related Data Allergies/Adverse Reactions: Allergies Allergy/AdvReac Type Severity Reaction Status Date / Time amoxicillin Allergy Severe Anaphylactic Verified 10/29/20 08:30 Shock venom-honey bee Allergy Anaphylactic Verified 10/29/20 08:30 [bee venom (honey bee)] Shock Home Medications: Home Meds Sertraline [Zoloft] 50 mg PO DAILY 10/30/15 [History] Pnv No.95/Ferrous Fum/Folic AC [ Tablet] 1 tab PO DAILY 10/07/20 [History] Esomeprazole Magnesium [Nexium] 40 mg PO DAILY 10/15/20 [History] diphenhydrAMINE HCL [Allergy Medicine] 1 tab PO DAILY 10/29/20 [History] Past Medical History - Past Health History Medical/Surgical History: Denies Medical/Surgical History Cardiovascular History: Reports: Heart Murmur, Other (See Below) 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 Respiratory History: Reports: Asthma Gastrointestinal History: Reports: GERD 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, Psychiatric History: Reports: Anxiety, Depression - Infectious Disease History Infectious Disease History: Reports: Other (See Below) Other Infectious Disease History: Covid 10/07/2020 - Past Surgical History GI Surgical History: Reports: Appendectomy, Cholecystectomy Social & Family History - Family History Family Medical History: No Pertinent Family History - Tobacco Use Tobacco Use Status *Q: Never Tobacco User Second Hand Smoke Exposure: No - Caffeine Use Caffeine Use: Reports: Coffee - Recreational Drug Use Recreational Drug Use: No - Living Situation & Occupation Living situation: Reports: with Significant Other H&P Review of Systems - Review of Systems: Review Of Systems: See Below General: Reports: No Symptoms HEENT: Reports: No Symptoms Pulmonary: Reports: No Symptoms Cardiovascular: Reports: No Symptoms Gastrointestinal: Reports: No Symptoms Genitourinary: Reports: No Symptoms Musculoskeletal: Reports: No Symptoms Skin: Reports: No Symptoms Psychiatric: Reports: No Symptoms Neurological: Reports: No Symptoms Hematologic/Lymphatic: Reports: No Symptoms Immunologic: Reports: No Symptoms L&D Exam - Exam Exam: See Below - Vital Signs Vital Signs: Last Vital Signs Temp 36.1 C 10/29/20 07:49 Pulse 88 10/29/20 07:49 Resp 16 10/29/20 07:49 BP 122/77 10/29/20 07:49 Pulse Ox 97 10/29/20 07:49 Weight: 125.69 kg - OB Specific Contraction Intensity: Moderate to Strong Movement: Active Heart Tones: Present Heart Rate (FHR) Variability: Moderate (6-25 bmp) Presentation: Vertex - Lozano Score Lozano Score Cervix Position: Anterior Lozano Score Consistency: Soft Lozano Score Effacement: 51-70% Lozano Score Dilation: > 5 cm Lozano Score 's Station: -2 Lozano Score Total: 10 - Exam General: Alert, Oriented HEENT: PERRLA, Conjunctiva Clear, EACs Clear, EOMI, Hearing Intact, Mucosa Moist & [place], Nares Patent, Normal Nasal Septum, Posterior Pharynx Clear, TMs Clear Neck: Supple, Trachea Midline Lungs: Clear to Auscultation, Normal Respiratory Effort Cardiovascular: Regular Rate, Regular Rhythm GI/Abdominal Exam: Normal Bowel Sounds, Soft, Non-Tender, No Organomegaly, No Distention, No Abnormal Bruit, No Mass, Pelvis Stable Rectal Exam: Normal Exam Back Exam: Normal Inspection Extremities: Normal Inspection, Normal Range of Motion, Non-Tender, No Pedal Edema, Normal Capillary Refill Skin: Warm, Dry, Intact Neurological: Cranial Nerves Intact, Reflexes Equal Bilateral Psychiatric: Alert, Normal Affect, Normal Mood - Patient Data Lab Results Last 24 hrs: Laboratory Results - last 24 hr 10/29/20 Range/Units 08:20 WBC 10.79 H (3.98-10.04) K/mm3 RBC 4.35 (3.98-5.22) M/mm3 Hgb 12.7 (11.2-15.7) gm/dl Hct 38.5 (34.1-44.9) % MCV 88.5 (79.4-94.8) fl MCH 29.2 (25.6-32.2) pg MCHC 33.0 (32.2-35.5) g/dl RDW Std Deviation 42.4 (36.4-46.3) fL Plt Count 270 D (182-369) K/mm3 MPV 10.6 (9.4-12.3) fl Neut % (Auto) 78.4 H (34.0-71.1) % Lymph % (Auto) 14.4 L (19.3-51.7) % [place] % (Auto) 6.3 (4.7-12.5) % Eos % (Auto) 0.5 L (0.7-5.8) Baso % (Auto) 0.1 (0.1-1.2) % Neut # (Auto) 8.47 H (1.56-6.13) K/mm3 Lymph # (Auto) 1.55 (1.18-3.74) K/mm3 [place] # (Auto) 0.68 H (0.24-0.36) K/mm3 Eos # (Auto) 0.05 (0.04-0.36) K/mm3 Baso # (Auto) 0.01 (0.01-0.08) K/mm3 Result Diagrams: 10/29/20 08:20 Problem List Initiated/Reviewed/Updated: Yes Orders Last 24hrs: Active Orders 24 hr Category Date Time Status Patient Status [ADT] Routine ADT 10/29/20 08:06 Active Activity as Tolerated [RC] PFP Care 10/29/20 08:06 Active Communication Order [RC] ASDIRECTED Care 10/29/20 08:06 Active Communication Order [RC] ASDIRECTED Care 10/29/20 08:14 Active Cooling Warming Measures [RC] ASDIRECTED Care 10/29/20 08:14 Active Heart Tones [RC] ASDIRECTED Care 10/29/20 08:07 Active Non Stress Test [RC] PER UNIT ROUTINE Care 10/29/20 07:45 Active Notify Provider [RC] ASDIRECTED Care 10/29/20 08:14 Active Notify Provider [RC] ASDIRECTED Care 10/29/20 08:15 Active Notify Provider [RC] PFP Care 10/29/20 08:06 Active Notify Provider [RC] PRN Care 10/29/20 08:06 Active Oxygen Therapy [RC] ASDIRECTED Care 10/29/20 08:14 Active Peripheral IV Care [RC] . DIRECTED Care 10/29/20 08:07 Active Pulse Oximetry [RC] ASDIRECTED Care 10/29/20 08:14 Active Vital Signs [RC] PER UNIT ROUTINE Care 10/29/20 07:45 Active Regular Diet [DIET] Diet 10/29/20 Breakfast Active RAPID PLASMA REAGIN,RPR [CHEM] Routine Lab 10/29/20 08:20 Received Acetaminophen [TylenoL] Med 10/29/20 08:06 Active 650 mg PO Q4H PRN Bupivacaine/fentaNYL/NS [fentaNYL/Bupivacaine/NS 2 MCG- Med 10/29/20 08:15 Active 0.125% 100 ML] 100 ml EPIDUR ASDIRECTED PRN Calcium Carbonate [Tums] Med 10/29/20 08:06 Active 1,000 mg PO Q2H PRN Lactated Ringers [Ringers, Lactated] 1,000 ml Med 10/29/20 08:15 Active IV ASDIRECTED Nalbuphine [Nubain] Med 10/29/20 08:06 Active 10 mg IVPUSH Q2H PRN Ondansetron [Zofran] Med 10/29/20 08:06 Active 4 mg IVPUSH Q4H PRN Oxytocin/Lactated Ringers [Pitocin in LR 10 Units/1,000 Med 10/29/20 08:15 Active ML] 10 unit in 1,000 ml IV .CONTINUOUS Sodium Chloride 0.9% [Saline Flush] Med 10/29/20 08:06 Active 10 ml FLUSH ASDIRECTED PRN diphenhydrAMINE [Benadryl] Med 10/29/20 08:15 Active 25 mg IVPUSH Q6H PRN ePHEDrine [ePHEDrine sulfate] Med 10/29/20 08:15 Active 5 mg IVPUSH ASDIRECTED PRN fentaNYL [Sublimaze] Med 10/29/20 08:15 Active 100 mcg EPIDUR Q3H PRN Electronic Heart Tones Ext w TOCO [WOMSER] Oth 10/29/20 08:06 Ordered Routine Electronic Heart Tones Internal [WOMSER] Per Unit Oth 10/29/20 08:06 Ordered Routine Peripheral IV Insertion Adult [OM.PC] Routine Oth 10/29/20 08:06 Ordered Resuscitation Status Routine Resus Stat 10/29/20 07:44 Ordered Medication Orders Acetaminophen (Tylenol) 650 mg PO Q4H PRN PRN Reason: Pain (Mild 1-3) and fever Calcium Carbonate/Glycine (Tums) 1,000 mg PO Q2H PRN PRN Reason: Indigestion Diphenhydramine HCl (Benadryl) 25 mg IVPUSH Q6H PRN PRN Reason: pruritis Ephedrine Sulfate (Ephedrine Sulfate) 5 mg IVPUSH ASDIRECTED PRN PRN Reason: Hypotension Fentanyl (Sublimaze) 100 mcg EPIDUR Q3H PRN PRN Reason: Pain Last Admin: 10/29/20 08:51 Dose: 100 mcg Documented by: DANIEL Fentanyl/Bupivacaine HCl (Fentanyl/Bupivacaine/Ns 2 Mcg-0.125% 100 Ml) 100 ml EPIDUR ASDIRECTED PRN PRN Reason: Pain Last Admin: 10/29/20 08:52 Dose: 100 ml Documented by: DANIEL Lactated Ringer's (Ringers, Lactated) 1,000 mls @ 100 mls/hr IV ASDIRECTED HAYDEN Last Admin: 10/29/20 08:38 Dose: 100 mls/hr Documented by: DANIEL Oxytocin/Lactated Ringer's (Pitocin In Lr 10 Units/1,000 Ml) 10 unit in 1,000 mls @ 500 mls/hr IV .CONTINUOUS HAYDEN Nalbuphine HCl (Nubain) 10 mg IVPUSH Q2H PRN PRN Reason: Pain Ondansetron HCl (Zofran) 4 mg IVPUSH Q4H PRN PRN Reason: Nausea/Vomiting Sodium Chloride (Saline Flush) 10 ml FLUSH ASDIRECTED PRN PRN Reason: Keep Vein Open Assessment/Plan Comment:: Term labor. Regular uncomplicated care. Labs reviewed. Epidural now in place. Anticipate . AROM clear fluid
--- NOTE | 2020-10-29 13:56 | PCM.SN.2 ---
- Free Text/Narrative Note: Stage I - Patient presented in active labor. Progressed to complete with epidural and overall reassuring heart tones. AROM clear fluid. Stage II - of viable male, weight 3580g, 8/9 APGARS at 1323. Head delivered in controlled manner over intact perineum. Body and shoulders followed without difficulty. Positive cry. Cord clamped and cut by father of baby. Stage III - of intact placenta. 3vc. 2nd degree MLL repaired with 3-0 vicryl. EBL 300.
[2020-10-29] MEDS ORDERED: Witch Hazel Medicated Pads 40/Jar TOP PRN (14:59)
[2020-10-29] MEDS ORDERED: Benzocaine/Menthol 20%-0.5% Spray 56 GM Canister TOP PRN (14:59)
[2020-10-30] MEDS: Ibuprofen 600 MG Tab PO PRN ×2 (03:14→10:47)
--- NOTE | 2020-10-30 07:26 | PCM48HPAN ---
Post Anesthesia Note - EVALUATION WITHIN 48HRS OF ANESTHETIC Vital Signs in Normal Range: Yes Patient Participated in Evaluation: Yes Respiratory Function Stable: Yes Airway Patent: Yes Cardiovascular Function Stable: Yes Hydration Status Stable: Yes Pain Control Satisfactory: Yes Nausea and Vomiting Control Satisfactory: Yes Mental Status Recovered: Yes Vital Signs: Last Vital Signs Temp 98.2 F 10/30/20 03:17 Pulse 86 10/29/20 22:03 Resp 14 10/30/20 03:17 BP 113/89 10/30/20 03:17 Pulse Ox 96 10/29/20 22:03
--- NOTE | 2020-10-30 10:23 | PCM.DCSUM1 ---
Discharge Summary - Hospital Course Free Text/Narrative:: Corazon is a 24-year-old 2 now para 2-0-0-2 white female who is admitted in active labor. She presented strong labor pains and progressed to complete cervical dilation. She underwent analgesia. Stage I - Patient presented in active labor. Progressed to complete with epidural and overall reassuring heart tones. AROM clear fluid. Stage II - of viable male, weight 3580g, 8/9 APGARS at 1323. Head delivered in controlled manner over intact perineum. Body and shoulders followed without difficulty. Positive cry. Cord clamped and cut by father of baby. Stage III - of intact placenta. 3vc. 2nd degree MLL repaired with 3-0 vicryl. EBL 300. patient is doing well. She plans to breast-feed. She has had minimal lochia, is voiding well, is ambulating without concerns and is nursing without problems. She is desiring discharge home. Condition: Good Diagnosis: Stroke: No - Discharge Data Discharge Date: 10/30/20 Discharge Disposition: Home, Self-Care 01 Condition: Good - Referral to Home Health Primary Care Physician: Dmo Albarran MD - Patient Instructions Diet: Regular Diet as Tolerated (Nursing diet with increased calories and calcium as recommended) Activity: As Tolerated (No intercourse or tampons until bleeding resolves) Driving: May Drive Today Showering/Bathing: May Shower Showering/Bathing, Other: May take a bath Notify Provider of: Fever, Increased Pain, Swelling and Redness, Nausea and/or Vomiting - Discharge Plan Home Medications: Home Meds Sertraline [Zoloft] 50 mg PO DAILY 10/30/15 [History] Pnv No.95/Ferrous Fum/Folic AC [ Tablet] 1 tab PO DAILY 10/07/20 [History] diphenhydrAMINE HCL [Allergy Medicine] 1 tab PO DAILY 10/29/20 [History] Ibuprofen [Motrin] 600 mg PO Q6H PRN tablet 10/30/20 [Rx] Referrals: Dom Albarran MD [Primary Care Provider] - (Return to clinicDr. Albarran or Re mchughurse practitioner2 to 3 weeks.) - Discharge Summary/Plan Comment DC Time >30 min.: No Discharge Summary/Plan Comment: Discharge instructions: 1. Discharge home 2. Diet, activity and follow-up discussed with patient. Recommend nursing diet with increased calories and calcium. 3. Precautions given concern increased pain, bleeding, temperature, signs/symptoms of DVT/PE. 4. Medications per home medication was printed, discussed with and given to the patient. 5. Return to clinic-Dr. Albarran or Re mittal-[facility]- [place] in 2 weeks. Diagnosis: Term -delivered Condition: Good - Patient Data Vitals - Most Recent: Last Vital Signs Temp 36.8 C 10/30/20 03:17 Pulse 86 10/29/20 22:03 Resp 14 10/30/20 03:17 BP 113/89 10/30/20 03:17 Pulse Ox 96 10/29/20 22:03 Weight - Most Recent: 125.69 kg I&O - Last 24 hours: Intake & Output 10/29/20 10/30/20 10/30/20 22:59 06:59 14:59 Intake Total 580 Output Total 471 Balance 109 Lab Results - Last 24 hrs: Laboratory Results - last 24 hr 10/29/20 Range/Units 08:20 RPR Non-reactive (NONREACTIVE) Med Orders - Current: Current Medications Ibuprofen (Motrin) 600 mg PO Q6H PRN PRN Reason: Pain/Fever Last Admin: 10/30/20 03:14 Dose: 600 mg Documented by: Fransisca Golden (Michelet) 1 pad TOP ASDIRECTED PRN PRN Reason: Pain Last Admin: 10/29/20 15:54 Dose: 1 tub Documented by: Discontinued Medications Acetaminophen (Tylenol) 650 mg PO Q4H PRN PRN Reason: Pain (Mild 1-3) and fever Last Admin: 10/29/20 22:04 Dose: 650 mg Documented by: Benzocaine/Menthol (Dermoplast Pain Relief [place]) 1 gm TOP ASDIRECTED PRN PRN Reason: Pain Last Admin: 10/29/20 15:54 Dose: 1 can Documented by: Bupivacaine HCl (Sensorcaine-Mpf 0.25%) 10 ml .ROUTE .STK-MED ONE Stop: 10/29/20 00:01 Calcium Carbonate/Glycine (Tums) 1,000 mg PO Q2H PRN PRN Reason: Indigestion Diphenhydramine HCl (Benadryl) 25 mg IVPUSH Q6H PRN PRN Reason: pruritis Ephedrine Sulfate (Ephedrine Sulfate) 5 mg IVPUSH ASDIRECTED PRN PRN Reason: Hypotension Fentanyl (Sublimaze) 100 mcg EPIDUR Q3H PRN PRN Reason: Pain Last Admin: 10/29/20 08:51 Dose: 100 mcg Documented by: Fentanyl/Bupivacaine HCl (Fentanyl/Bupivacaine/Ns 2 Mcg-0.125% 100 Ml) 100 ml EPIDUR ASDIRECTED PRN PRN Reason: Pain Last Admin: 10/29/20 08:52 Dose: 100 ml Documented by: Lactated Ringer's (Ringers, Lactated) 1,000 mls @ 100 mls/hr IV ASDIRECTED HAYDEN Last Admin: 10/29/20 08:38 Dose: 100 mls/hr Documented by: Oxytocin/Lactated Ringer's (Pitocin In Lr 10 Units/1,000 Ml) 10 unit in 1,000 mls @ 500 mls/hr IV .CONTINUOUS HAYDEN Last Admin: 10/29/20 13:23 Dose: 500 mls/hr Documented by: Nalbuphine HCl (Nubain) 10 mg IVPUSH Q2H PRN PRN Reason: Pain Ondansetron HCl (Zofran) 4 mg IVPUSH Q4H PRN PRN Reason: Nausea/Vomiting Sodium Chloride (Saline Flush) 10 ml FLUSH ASDIRECTED PRN PRN Reason: Keep Vein Open
[2020-10-30 11:28] VITALS: BP 120/50; PULSE 80
== END 2020-10-30 14:45 | disposition home or self-care (01) | DRG 807 ==
LOC: JD.OB 07:34 → JD.OBCHECK 07:34 → JD.OB 08:06 → OBSVTOIN 13:23 → JD.OB 13:24
PROVIDERS: ADMIT Obstetrics & Gynecology; ATTEND Obstetrics & Gynecology
PROC: 10E0XZZ Delivery of Products of Conception, External Approach (ICD-10-PCS; principal; 2020-10-29)
PROC: 0KQM0ZZ Repair Perineum Muscle, Open Approach (ICD-10-PCS; 2020-10-29)
PROC: 10907ZC Drainage of Amniotic Fluid, Therapeutic from Products of Conception, Via Natural or Artificial Opening (ICD-10-PCS; 2020-10-29)
PROC: 3E0R3BZ Introduction of Anesthetic Agent into Spinal Canal, Percutaneous Approach (ICD-10-PCS; 2020-10-29)
PROC: 00HU33Z Insertion of Infusion Device into Spinal Canal, Percutaneous Approach (ICD-10-PCS; 2020-10-29)
DX: O99.344 Other mental disorders complicating childbirth (principal); Z37.0 Single live birth; F41.9 Anxiety disorder, unspecified; F32.9 Major depressive disorder, single episode, unspecified; O99.62 Diseases of the digestive system complicating childbirth; K21.9 Gastro-esophageal reflux disease without esophagitis; O99.52 Diseases of the respiratory system complicating childbirth; J45.909 Unspecified asthma, uncomplicated; Z90.49 Acquired absence of other specified parts of digestive tract; Z88.0 Allergy status to penicillin; Z91.030 Bee allergy status; Z79.899 Other long term (current) drug therapy; O70.1 Second degree perineal laceration during delivery; Z86.16 Personal history of COVID-19; Z3A.38 38 weeks gestation of pregnancy
CPT/HCPCS: 01967; 36415; 51702; 59025; 59409; 85025; 86592; A9270-GY; J2590; J3010; J3490; J7120

== ENCOUNTER 2024-12-13 05:50 | Emergency (ER) | payer MEDICAID ==
[2024-12-13] MEDS: Ketorolac 30 MG/ML SDV IM ONE (06:17)
[2024-12-13 09:49] VITALS: BP 127/76; PULSE 64
== END 2024-12-13 07:22 | disposition home or self-care (01) ==
LOC: JD.ED 05:50
DX: M54.50 Low back pain, unspecified (principal); Z88.0 Allergy status to penicillin; Z91.030 Bee allergy status; Z79.899 Other long term (current) drug therapy
CPT/HCPCS: 96372; 99283; J1885